=== PATIENT | female | born 1990 | race African-American/Black ===

== ENCOUNTER → 2017-03-02 | Outpatient (CLI) | payer OTHER ==
[~2017-03-02] MED LIST: BARIUM SULFATE 2.1% 450 ML SUSP PO ONE
--- NOTE | 2017-03-02 13:27 | KCIC ---
PROCEDURE CT abdomen and pelvis without contrast. HISTORY Right lower quadrant pain x2 days. White blood cells urine. TECHNIQUE Helical CT imaging of the abdomen and pelvis is performed without IV contrast. Per report patient's contrast allergy, unspecified. Oral contrast is given. PQRS: One or more the following individualized dose reduction techniques were utilized for the study: 1. Automated exposure control. 2. Adjustment of the mA and/or kV according to patient size. 3. Use of iterative reconstruction technique. COMPARISON None. FINDINGS Cardiac size normal. Visualized lung bases are clear. The liver, gallbladder, spleen, pancreas, adrenal glands, and and abdominal aortic caliber are normal. There is faint medullary nephrocalcinosis bilaterally. There is no hydronephrosis or perinephric stranding. Stomach is unremarkable. No dilated small bowel. The appendix is normal. Oral contrast reaches the ascending colon. There is stool in the transverse colon. No colon wall thickening. No abdominal adenopathy or free fluid. Uterus and ovaries unremarkable, not well evaluated with CT. No pelvic free fluid is seen. Urinary bladder is normal. No acute bone abnormality. There is a 2 centimeter probable bone island of the right femoral neck. IMPRESSION No acute abdominal or pelvic abnormality. The appendix is normal. Electronically signed by: Jourdan Raines MD (March 02, 2017 13:26:43)
== END | disposition home or self-care (01) ==
LOC: KCIC CT 12:11
PROVIDERS: ATTEND Internal Medicine
DX: R10.31 Right lower quadrant pain (principal); D72.829 Elevated white blood cell count, unspecified; K35.2 Acute appendicitis with generalized peritonitis
CPT/HCPCS: 74176